=== PATIENT | female | born 1985 | race Caucasian/White ===

== ENCOUNTER 2022-06-04 06:33 | Day surgery (SDC) | payer MEDICAID ==
[2022-06-03 09:12] LABS: HCG,QUAL RESULT NEGATIVE (NEGATIVE)
[~2022-06-04] VITALS: Ht 154.9 cm; Wt 84.8 kg
[2022-06-04] MEDS ORDERED: LR 1,000 ML IV.SOLN IV ONE (13:30)
[2022-06-04] MEDS ORDERED: SUCCINYLCHOLINE CHLORIDE 20 MG/ML(QUELICIN) ONE (13:30)
[2022-06-04] MEDS ORDERED: LIDOCAINE 1% 10 MG/ML, 20 ML MDV ONE (13:30)
[2022-06-04] MEDS ORDERED: WATER FOR IRRIGATION,STERILE 1,000 ML IRRIG.SOLN IR ONE (13:30)
[2022-06-04] MEDS ORDERED: DEXAMETHASONE SOD PHOSPHATE 4 MG/ML VIAL ONE (13:30)
[2022-06-04] MEDS ORDERED: SUGAMMADEX SODIUM 200 MG/2 ML VIAL IV ONE (13:30)
[2022-06-04] MEDS ORDERED: fentaNYL CITRATE 250 MCG/5 ML AMP ONE (13:30)
[2022-06-04] MEDS ORDERED: GLYCOPYRROLATE 0.2 MG/ML VIAL ONE (13:30)
[2022-06-04] MEDS ORDERED: MIDAZOLAM HCL 5 MG/ML VIAL (VERSED) IV ONE (13:30)
[2022-06-04] MEDS ORDERED: PROPOFOL 200MG/ 20ML VIAL (DIPRIVAN) IV ONE (13:30)
[2022-06-04] MEDS ORDERED: NEOSTIGMINE METHYLSULFATE 1 MG/ML, 10 ML VIAL ONE (13:30)
[2022-06-04] MEDS ORDERED: ePHEDrine sulfate 50 MG/ML VIAL ONE (13:30)
[2022-06-04] MEDS ORDERED: SEVOFLURANE 15 MIN GAS INH ONE (13:30)
[2022-06-04] MEDS ORDERED: ROCURONIUM BROMIDE 10 MG/ML (ZEMURON) ONE (13:30)
[2022-06-04] MEDS ORDERED: METOCLOPRAMIDE HCL 10 MG/2 ML VIAL ONE (13:30)
[2022-06-04] MEDS ORDERED: ONDANSETRON HCL 4 MG/2 ML VIAL ONE (13:30)
[2022-06-04] MEDS ORDERED: LR 1,000 ML IV SCH (13:45)
[2022-06-04] MEDS ORDERED: ALBUTEROL SULFATE 0.083% 2.5 MG/3 ML VIAL.NEB INH PRN (13:45)
[2022-06-04] MEDS ORDERED: HYDROmorphone 1 MG/ML INJ. CARTRIDGE IVP PRN (13:45)
[2022-06-04] MEDS ORDERED: ONDANSETRON HCL 4 MG/2 ML VIAL IVP PRN ×2 (13:45)
[2022-06-04] MEDS ORDERED: D5/0.45 NS 1,000 ML IV SCH (13:45)
[2022-06-04] MEDS ORDERED: HYDROcodone/ACETAMIN 5-325 MG TAB (NORCO/ VICODIN) PO PRN (13:45)
[2022-06-04] MEDS ORDERED: HYDROmorphone 2 MG/ML VIAL IVP PRN (13:45)
[2022-06-04 14:06] VITALS: BP_SYST 129
--- NOTE | 2022-06-04 14:40 | NUR ---
PATIENT CAME FROM O.R; S/P TONSILLECTOMY. IV LR RUNNING. IV SITE REMAIN PATENT AND INTACT. NOTED WHITE SPOTS ON PT'S THROAT DUE TO TONSILLECTOMY. PROVIDED ICE CHIPS PER REQUEST. FAMILY AT BEDSIDE. DENIES ANY ACUTE DISTRESS. SLIGHT DISCOMFORT TO THROAT NOTED, REFUSED PAIN MEDICATION AT THIS TIME. BED IS LOCKED AND AT LOW POSITION. ENCOURAGED TO USE CALL LIGHT FOR ASSISTANCE.
[2022-06-04 14:45] VITALS: BP_SYST 134
[2022-06-04 14:51] VITALS: BP_SYST 134
--- NOTE | 2022-06-04 19:00 | NUR ---
CLOSING NOTE PT IN BED, SLEEPING WITH EVEN AND NON-LABORED BREATHING. IV RUNNING ORDERED WITH SITE KEPT PATENT AND INTACT. NO S/S INFILTRATION OR INFECTION NOTED. NO S/S OF PAIN OR DISCOMFORT NOTED. 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
[2022-06-04 20:30] VITALS: BP_SYST 127
--- NOTE | 2022-06-04 22:00 | NUR ---
Patient states she wants to go home and that she feels fine. Explained to patient that the physician wanted to monitor her overnight because of the bronchospasm and decrease in oxygen saturation during surgery. Patient verbalized understanding but stated she wanted to go home anyway and has already talked to her family about picking her up. Patient stated her would be with her all night to watch her, and that two other family members would also be there. Patient has ambulated and voided multiple times with no issues. She also tolerated jello and applesauce and has been drinking water. Oxygen saturation has been 95-99% throughout the night. Lowest noted was 94% that increased to 99% when patient took deep breaths. Heart rate slightly elevated, ranging from 90-115. Dr. Glass has been paged twice.
--- NOTE | 2022-06-04 22:45 | NUR ---
Informed Dr. Glass that patient wants to leave AMA. Also informed him of patient's current vitals and situation as documented in previous note. Received order to discharge to home. Dr. Glass gave instructions for patient to follow up in one month and to call the office sooner if needed. Prescription for [place] has been sent to patient's pharmacy. Dr. Glass stated to give one dose of [place] tonight before she goes home. Soft foods only for two weeks, no strenuous activity. Updated patient on discharge plan, discharge education provided. Patient verbalized understanding and stated her parents will pick her up.
[2022-06-04 23:07] VITALS: BP_SYST 127
--- NOTE | 2022-06-04 23:39 | NUR ---
D/C Patient Patient given medication reconciliation form and D/C instructions. Exit Care provided. Patient verbalized understanding. Ambulatory with steady gait for discharge to home. Patient in stable condition, ID band removed. Vitals stable. 97% on room air, HR in 90s. IV catheter removed, intact and dressing applied, no active bleeding. Rx of [place] has been sent to patient's pharmacy per Dr. Glass. Patient educated on pain management, soft diet, to avoid strenuous activity, how to monitor HR and O2 level, and symptoms to seek emergency care for. Also instructed to follow up with Dr. Glass in one month. 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 Patient stated that her will be with her to check on her while she is sleeping tonight. All belongings including patient's own albuterol inhaler sent with her. Escorted via wheelchair and discharged to home via private vehicle with father.
== END 2022-06-04 23:45 | disposition home or self-care (01) ==
LOC: SDS 06:33 → SMU 06:34 → SDS 23:45
PROVIDERS: ATTEND Otolaryngology
DX: J35.01 Chronic tonsillitis (principal); G47.33 Obstructive sleep apnea (adult) (pediatric); K21.9 Gastro-esophageal reflux disease without esophagitis; E66.01 Morbid (severe) obesity due to excess calories; Z20.822 Contact with and (suspected) exposure to COVID-19; Z99.89 Dependence on other enabling machines and devices
CPT/HCPCS: 84703; 36415; 42826; 71045; 94760; 88304; U0003; J3490 ×2; J1100; J2001; J2765; J2250; J2405; J2704; J0330; J3010; J1170; J7120; J2710